=== PATIENT | female | born 1980 | race Caucasian/White ===

== ENCOUNTER 2020-09-23 16:56 | Emergency (ER) | payer OTHER, SELFPAY ==
[2020-09-23 17:40] VITALS: BP 142/76; PULSE 83; RESP 20; TEMP 36.7; O2SAT 100; BMI 27.4
[2020-09-23] MEDS: OXYCODONE/ACETAMINOPHEN 5/325 TABLET 1 TAB PO (19:59)
[2020-09-23] MEDS: IBUPROFEN 400 MG TABLET PO (20:00)
[2020-09-23 20:15] VITALS: BP 120/67; PULSE 76; RESP 20; TEMP 36.1; O2SAT 99
--- NOTE | 2020-09-24 03:42 | ED.UPPEXIN ---
HPI - Extremity Injury (Upper) General Chief Complaint: Extremity Injury, Upper Stated Complaint: RT SHOULDER/ARM/HAND PAIN Time Seen by Provider: 09/23/20 17:56 History of Present Illness HPI narrative: 40-year-old woman at 15 weeks gestational age presents with significant right upper extremity pain. She notes that she spent quite a bit of time yesterday manually using a screwdriver to assemble furniture but does not describe any other injuries. She reports no fevers, cough, chest pain, palpitations, mild intermittent nausea associated with , no significant lower extremity edema Related Data Allergies Allergy/AdvReac Type Severity Reaction Status Date / Time No Known Drug Allergies Allergy Verified 09/23/20 20:21 Review of Systems Review of Systems Narrative: Remainder of complete review of systems is otherwise unremarkable except for that included in the HPI. Patient History Social History Smoking Status: Never smoker Smoking Status: Never smoker alcohol intake frequency: 0-2 drinks per day Substance Use Type: does not use Exam Narrative Exam Narrative: General: Alert appropriate in no acute distress Respiratory: Able to speak in full sentences, no obvious respiratory distress Skin: Warm and dry with sunburn worse over the right side of her body Neurologic: Grossly intact no obvious asymmetries or abnormalities Psych: appropriate insight and affect, cooperative Extremity: Right upper extremity is examined. She has no pain on passive range of motion at the right shoulder and there is no redness or palpable abnormalities shoulder. Similar findings at the wrist and in her hand. She does have significant tenderness on both the medial and lateral epicondyle of the elbow and when these are palpated she notices pain radiating both upper arm and down to her wrist. Initial Vital Signs Initial Vital Signs: Vital Signs Temperature 98.1 F 09/23/20 17:40 Pulse Rate 83 09/23/20 17:40 Respiratory Rate 20 09/23/20 17:40 Blood Pressure 142/76 H 09/23/20 17:40 Pulse Oximetry 100 09/23/20 17:40 Procedures Orthopedic Splinting/Casting Injury #1: Side: right Upper Extremity Injury Location: elbow Upper Extremity Immobilizer: sling/shoulder immobilizer Post splinting neuro exam: intact Post splinting vascular exam: intact Placed by: Nursing Course Orders Ordered: Discontinued Medications Ibuprofen (Ibuprofen 400 Mg Tablet) 400 mg PO NOW ONE Stop: 09/23/20 19:56 Last Admin: 09/23/20 20:00 Dose: 400 mg Documented by: BALAJI Oxycodone/Acetaminophen (Oxycodone/Acetaminophen 5/325 Tablet) 1 tab PO NOW ONE Stop: 09/23/20 19:56 Last Admin: 09/23/20 19:59 Dose: 1 tab Documented by: BALAJI Vital Signs Vital signs: Vital Signs - 8 hr 09/23/20 20:15 Temperature 96.9 F L Pulse Rate 76 Respiratory Rate 20 Blood Pressure 120/67 Pulse Oximetry [address] [facility] - Extremity Injury (Upper) Medical Records Attestation: I reviewed the patient's medical records. [facility] Narrative Medical decision making narrative: 40-year-old woman with both medial and lateral epicondylitis likely from the manual screwdriver use yesterday. No evidence of fractures, bursitis, septic joint. She is placed in the sling and given both ibuprofen and Tylenol. Ice is applied to both the medial and lateral aspects of the elbow and pain is somewhat improved. Reviewed questions. Patient is safe for home discharge Discharge Plan Departure Patient Disposition: Home Clinical Impression: Epicondylitis, lateral (tennis elbow) Qualifiers: Laterality: right Qualified Code(s): M77.11 - Lateral epicondylitis, right elbow Medial epicondylitis Qualifiers: Laterality: right Qualified Code(s): M77.01 - Medial epicondylitis, right elbow Instructions: DI for Medial Epicondylitis, DI for Lateral Epicondylitis (Tennis Elbow) Activity Restrictions/Additional Instructions: Thank you for coming in today You have a both the inner and outer portion of your elbow irritated after all of the movement screwing together furniture yesterday. There is no obvious fracture and this should heal without any other intervention. It may however, the worse tomorrow. Using 400 mg of ibuprofen (2 [id number] pills) and 1 Tylenol every 6 hours can be very helpful in controlling pain. This is safe for you and your baby until approximately November 01 (20 weeks) Use the sling to the help immobilize the arm and ice to help with the swelling and discomfort. Do not forget your sunscreen! I wish you well Referrals: Miscellaneous,Doctor, MD [Primary Care Provider] -
== END 2020-09-23 20:35 | disposition home or self-care (01) ==
PROVIDERS: Emergency Provider Emergency Medicine
DX: M77.11 Lateral epicondylitis, right elbow (principal); M77.01 Medial epicondylitis, right elbow
CPT/HCPCS: 99283